=== PATIENT | female | born 1970 | race Caucasian/White ===

== ENCOUNTER 2024-10-16 11:02 | Emergency (ER) | payer BC, SELFPAY ==
[2024-10-16 11:26] VITALS: BP 146/86
[2024-10-16 11:45] VITALS: BP 147/97
[2024-10-16 11:55] VITALS: BMI 22.3
[2024-10-16 11:56] LABS: Hematocrit 37.4 % (37.0-47.0); Hemoglobin 12.5 g/dL (12.0-16.0); Mean Corp Hgb Conc. 33.4 g/dL (33.0-37.0); Mean Corpuscular Volume 91.7 fL (81.0-99.0); Nucleated Red Blood Cells % 0 %; Platelet Count 189 10^3/uL (130-400); Red Cell Dist. Width 13.0 % (11.5-14.5)
--- NOTE | 2024-10-16 11:56 | ED.GENMED ---
History of Present Illness
<Chance Shen, DO - Last Filed: 10/17/24 12:46>
General
Chief Complaint: Dizziness
Source: patient
Exam Limitations: none
Time Seen by Provider: 10/16/24 11:38
Nursing documentation reviewed up to this point in time: agreed with
History of Present Illness
History of Present Illness:
Note:
CHIEF COMPLAINT(S)
Dizziness and unsteady gait
HISTORY OF PRESENT ILLNESS
The patient is a 54-year-old female who presented with episodes of dizziness and feelings of unsteadiness that began last night. She described her legs feeling weak and noted episodes of lightheadedness, which notably occurred while driving her
daughter to [facility]. This sensation persisted throughout her visit, manifesting as feelings of instability, particularly noticeable on [place] platforms of [place] and while walking. The patient likened the experience to having a panic
attack.
Symptom episodes included tingling in her toes and hands, as well as cold and clammy extremities, particularly in the hands. She experienced discomfort while driving, necessitating her daughter to take over driving at one point. Her hands were more
affected by the tingling and cold clamminess than her legs. This morning, while at work, she measured her blood pressure at 150/100 mmHg, which she noted is unusually high for her, given her typically lower baseline and history of bradycardia due to
past marathon running.
PAST MEDICAL AND SURIGICAL HISTORY
Hysterectomy in 2016 due to a fibroid tumor.
SOCIAL HISTORY
The patient reported occasional alcohol consumption, approximately two glasses of beer or wine daily.
PHYSICAL EXAM
General: Alert, no acute distress.
Skin: Warm, dry.
Head: Normocephalic, atraumatic.
Neck: Supple, trachea midline.
Eye, Ears, Nose, Mouth, Throat: Oral mucosa moist.
Cardiovascular: Normal peripheral perfusion, No edema.
Respiratory: Lungs clear, respirations are non-labored.
Gastrointestinal: Abdomen nondistended
Back: Normal range of motion, Normal alignment.
Musculoskeletal: Normal range of motion, normal strength.
Neurological: Alert and oriented to person, place, time, and situation, No focal neurological deficit observed.
Psychiatric: Cooperative, appropriate mood & affect.
PLAN
1. Perform blood tests to evaluate any electrolyte imbalances.
2. Conduct imaging and potentially a computed tomography (CT) scan of the head.
3. Consult with neurology to rule out serious conditions such as multiple sclerosis.
4. Reassess blood pressure management and monitor for severe electrolyte abnormalities.
5. Evaluate electrocardiogram (EKG) for abnormalities in line with symptoms.
DIFFERENTIAL DIAGNOSIS
The Differential Diagnosis includes, in no particular order and is not limited to:
1. Benign paroxysmal positional vertigo
2. Labyrinthitis
3. Vestibular migraine
4. Panic disorder
5. Multiple sclerosis
6. Orthostatic hypotension
7. Transient ischemic attack
8. Hyperventilation syndrome
9. Metabolic imbalances (such as hypoglycemia, electrolyte disturbances)
10. Anxiety disorders
CARE-UPDATE
10/16/24 - 14:42
The patient presents with paresthesias but shows no focal neurological findings on examination. Awaiting further evaluation by neurology. Anticipation is for discharge following neurologys assessment, assuming no acute intervention is required.
Past History
<Chance Shen, DO - Last Filed: 10/17/24 12:46>
Past History
ED Past Medical History: None
Social History
Tobacco: Non-smoker
Personal:
Living: with family
Employment: Employed
Family History
Family History: Other (She had a fall with colon cancer and diabetes, a son with)
Phy Exam
<Chance Shen, DO - Last Filed: 10/17/24 12:46>
Physical Exam
Physical Exam:
.
Course
<Chance Shen, DO - Last Filed: 10/17/24 12:46>
Orders/Labs/Results
Orders:
Orders
10/16/24 11:29
Electrocardiogram (*1) Urgent
Reason for Study: Chest Pain
EKG- Treatment ONCE
10/16/24 11:48
Basic Metabolic Panel Urgent
Complete Blood Count/With Diff Urgent
Lyme Progressive Urgent
Comment: ADD ON
Monotest Urgent
Comment: ADD ON
10/16/24 11:55
CT Head W/o Iv Contrast Urgent
Comment:
Reason For Exam: unsteady gait, paresthesias
10/16/24 11:56
IV Insert/Care/Rem.- Treatment PRN
10/16/24 11:59
NEUROLOGY CONSULT Urgent
Consulting Provider: Warren Bravo
Was physician already notified: Yes
Reason for consult: paresthesias, difficulty walking
10/16/24 13:44
Add On- LAB Urgent
Tests Added?: lyme progressive, monospot
10/16/24 15:18
Thiamine HCl [Vitamin B1] 100 mg PO NOW STA
10/16/24 15:37
AR, IgG Reflex to HEp-2 [S] Routine
Comment: May add to blood in lab
CRP [C-Reactive Protein] Routine
Comment: May add to blood in lab
Erythrocyte Sed Rate Routine
Comment: may add to blood in lab
Ferritin Routine
Folate Routine
Comment: May add to blood in lab
TSH Reflex To Free T4 Routine
Comment: May add to blood in lab
Vitamin B12 Routine
Comment: May add to blood in lab or draw as routine
Abnormal Lab Results
10/16/24 10/16/24
11:48 15:37
WBC 4.4 L 10^3/uL
(4.8-10.8)
RBC 4.08 L 10^6/uL
(4.20-5.40)
Chloride 108 H mmol/L
(98-107)
Vitamin B12 200 L pg/ml
(239-931)
10/16/24 11:48
10/16/24 11:48
Vital Signs
Initial and Last Documented VS:
Initial Vital Signs
Temp Pulse Resp BP Pulse Ox
98.3 F 65 16 146/86 99
10/16/24 11:26 10/16/24 11:26 10/16/24 11:26 10/16/24 11:26 10/16/24 11:26
Last Documented Vital Signs
Temp Pulse Resp BP Pulse Ox
98.3 F 59 14 133/80 99
10/16/24 11:26 10/16/24 16:15 10/16/24 15:00 10/16/24 13:00 10/16/24 11:56
<Rossana Santana DO - Last Filed: 10/16/24 20:37>
Orders/Labs/Results
Orders:
Orders
10/16/24 11:29
Electrocardiogram (*1) Urgent
Reason for Study: Chest Pain
EKG- Treatment ONCE
10/16/24 11:48
Basic Metabolic Panel Urgent
Complete Blood Count/With Diff Urgent
Lyme Progressive Urgent
Comment: ADD ON
Monotest Urgent
Comment: ADD ON
10/16/24 11:55
CT Head W/o Iv Contrast Urgent
Comment:
Reason For Exam: unsteady gait, paresthesias
10/16/24 11:56
IV Insert/Care/Rem.- Treatment PRN
10/16/24 11:59
NEUROLOGY CONSULT Urgent
Consulting Provider: Warren Bravo
Was physician already notified: Yes
Reason for consult: paresthesias, difficulty walking
10/16/24 13:44
Add On- LAB Urgent
Tests Added?: lyme progressive, monospot
10/16/24 15:18
Thiamine HCl [Vitamin B1] 100 mg PO NOW STA
10/16/24 15:37
AR, IgG Reflex to HEp-2 [S] Routine
Comment: May add to blood in lab
CRP [C-Reactive Protein] Routine
Comment: May add to blood in lab
Erythrocyte Sed Rate Routine
Comment: may add to blood in lab
Ferritin Routine
Folate Routine
Comment: May add to blood in lab
TSH Reflex To Free T4 Routine
Comment: May add to blood in lab
Vitamin B12 Routine
Comment: May add to blood in lab or draw as routine
Abnormal Lab Results
10/16/24 10/16/24
11:48 15:37
WBC 4.4 L 10^3/uL
(4.8-10.8)
RBC 4.08 L 10^6/uL
(4.20-5.40)
Chloride 108 H mmol/L
(98-107)
Vitamin B12 200 L pg/ml
(239-931)
10/16/24 11:48
10/16/24 11:48
Vital Signs
Initial and Last Documented VS:
Initial Vital Signs
Temp Pulse Resp BP Pulse Ox
98.3 F 65 16 146/86 99
10/16/24 11:26 10/16/24 11:26 10/16/24 11:26 10/16/24 11:26 10/16/24 11:26
Last Documented Vital Signs
Temp Pulse Resp BP Pulse Ox
98.3 F 59 14 133/80 99
10/16/24 11:26 10/16/24 16:15 10/16/24 15:00 10/16/24 13:00 10/16/24 11:56
<Chance Shen, DO - Last Filed: 10/17/24 12:46>
*Pulse Oximetry
SaO2: 99
Oxygen Mode of Delivery: Room air
<Rossana Santana DO - Last Filed: 10/16/24 20:37>
*Pulse Oximetry
Patient hypoxic: no
*Critical Care Note
Total Time (30-74mins, 75-104mins- exclusive of procedures): Not Applicable
<Rossana Santana DO - Last Filed: 10/16/24 20:37>
Update Note
Update Note:
Attending Signout Note (Rossana Santana DO)
14:30 -assuming care of patient, 54-year-old female without significant past medical history presenting for paresthesias to the arms and legs. Hemodynamically stable in the ER, unremarkable neurologic workup at this time. Pending neurologic
consultation. CT brain negative.
16:00-neurology saw patient, without present concern for significant acute pathology. Recommending outpatient follow-up and outpatient MRI if symptoms continue. Patient provided referral for MRI. Additional laboratory analysis sent, which patient
will follow up on her portal. Return precautions discussed and patient verbalized understanding
ED Attending Note
<Chance Shen, DO - Last Filed: 10/17/24 12:46>
-
Portions of this chart may have been created with voice recognition software.� Occasional wrong word or��sound alike� substitutions may have occurred due to the inherent limitations of voice recognition software.
Discharge Plan
Departure
Patient Disposition: Home (Routine Discharge)
Date of Disposition: 10/16/24
Time of Disposition: 16:11
Patient with high blood pressure during this ER visit?: Yes
Condition: Good
Discharge Problem:
Paresthesia, Dizziness
Instructions: Hand Numbness, Dizziness, BLOOD PRESSURE
Prescriptions:
No Action
cyanocobalamin (vitamin B-12) 2,500 MCG tablet,chewable
2,500 mcg PO DAILY
calcium carbonate-vitamin D3 [Calcium 500 + D] 1 EACH tablet
1 ea PO DAILY
acetaminophen 325 MG tablet
650 mg PO Q4HPRN PRN (Reason: mild pain) 0RF
ferrous sulfate [iron] 325 MG tablet
325 mg PO TID Qty: 90 0RF
Referrals:
Christopher Titus DO [Family Provider, [facility]]
Activity Restrictions/Additional Instructions:
You were seen in the emergency department for paresthesias
You were found to have reassuring vital signs, laboratory analysis, CT imaging of your brain.
Please follow-up closely with your primary care physician and obtain an MRI of your brain and cervical spine if symptoms persist
Return to the emergency department for any worsening of your symptoms, or any development of chest pain, difficulty breathing, abdominal pain with persistent vomiting and inability to tolerate food or liquid by mouth (concern for dehydration),
weakness, headache or confusion, fever greater than 100.4, or any additional symptoms that are concerning to you.
Thank you for choosing [facility].
Interventions
Interventions:
*Risk Screen - Suicide Last Done: 10/16/24 11:26
*General Assessment Last Done: 10/16/24 11:52
*Neglect/Abuse Screening Last Done: 10/16/24 11:26
*ED- Fall Risk Assessment Last Done: 10/16/24 11:52
*Nursing Disposition Last Done: 10/16/24 16:19
ED- Neurological Assessment Last Done: 10/16/24 11:50
ED Swallowing Screen Last Done: 10/16/24 11:50
Discharge Date and Time
Discharge Date/Time: 10/16/24 16:19
Print Language: INDONESIAN
[2024-10-16 12:00] VITALS: BP 133/85
--- NOTE | 2024-10-16 12:00 | CON.NEURO ---
Neuro Assessment/Plan
Assessment
Acute onset bilateral hand sensation change with sense of unsteadiness and sensory changes in bilateral lower extremities associated on 1 occasion with panic and similar to an episode in 2018 at which time the patient was significantly anemic.
Differential diagnosis includes toxic metabolic abnormality
Plan
Check blood work for potential metabolic abnormalities
Check MRI brain with and without contrast if symptoms persist beyond next 24 hours
Consider MRI of cervical spine with and without contrast if symptoms persist beyond the next 24 hours despite absence of hyperreflexia
No clear benefit from rehabilitation evaluations and treatment
Provide thiamine for completeness
Will follow as needed
Consultation
Order
Date of Consultation: 10/16/24
Requesting Provider: Emergency department providers
Reason for Consult: Skin sensation change
Subjective/Objective
Subjective Data
Date of Service: October 16, 2024
Right-Handed
2 days prior to presentation, patient began experiencing multiple symptoms while driving to [facility] from [place]. Specifically the patient began experiencing a sense of numbness in her fingers as well as in the tops of legs associated with
a sense of panic. This sense continued and was later associated with a feeling of unsteadiness. She had experienced a sense of unsteadiness in 2018 at which time she was significantly anemic secondary to a uterine fibroid requiring hysterectomy
and associated significant anemia.
The sense of hand numbness and unsteadiness resolved but returned the following day although less intense lasting for multiple hours before spontaneously resolving. When the patient again experienced that sensation today and also associated with a
feeling of near syncope, while at work, the patient presented to this hospital's emergency department for further evaluation and treatment.
No known modifying factors for symptoms at this time. No obvious recent stressors. The patient continues to have a sense of unsteadiness with standing feeling as if she needs to take her toes into the ground to maintain a sense of steadiness.
Patient has not been dropping objects at this time. No episodes of falling. Symptoms are bilaterally equal.
Objective Data
Vital Signs
Temp Pulse Resp BP Pulse Ox
36.8 C 65 12 147/97 99
10/16/24 11:26 10/16/24 11:45 10/16/24 11:45 10/16/24 11:45 10/16/24 11:56
Lab Results
10/16/24 11:48
Patient Allergies
No Known Allergies Allergy (Verified 10/16/24 11:26)
Review of Systems
-
History Source: Patient and Family
All other systems: Reviewed and negative
EENT: Negative Hearing Loss or Swallowing Difficulty
Respiratory: Negative Trouble Breathing
Cardiac: Negative Chest Pain
Abdomen/GI: Negative Incontinence of Stool
Genitourinary: Negative Incontinence
Musculoskeletal: Negative Back Pain or Neck Pain
Neuro: Negative Dizzy or Headache
Physical Exam
-
General: No Apparent Distress and Appears Stated Age
Eyes: OU Absent Papilledema, Round OU, [place] Conjunctivae and No Ptosis
HEENT: Anicteric and Moist Mucous Membranes
Neck: Full Range of Motion
Respiratory: No Dyspnea
Cardiac: No JVD
GI: Non-distended
Skin: Unremarkable
Extremities: No Clubbing, No Cyanosis and No Edema
Psych: Intact Judgement/Insight
Extended Neurological Exam
Mood & Affect: Mood Unremarkable and Affect Unremarkable
Attention Span & Concentration: Awake, Alert, Interactive and No Difficulty with 2 Step Request
Memory: Unremarkable
Tremor: Hand Tremor Absent and Head Tremor Absent
Speech: Quality Unremarkable and Quantity Unremarkable
Cranial Nerve II: Left Eye: Pupillary Reactivity Unremarkable, Pupillary Size Unremarkable and Visual Marie Intact
Cranial Nerve II: Right Eye: Pupillary Reactivity Unremarkable, Pupillary Size Unremarkable and Visual Marie Intact
Cranial Nerves III, IV, : Extraocular Movement: Extraocular Movement Full in all Directions
Cranial Nerve V: Facial Sensation: Facial Sensation Unremarkable to Cold
Cranial Nerve VII: Facial Symmetry: Normal Facial Symmetry
Cranial Nerve VIII: Hearing: Unremarkable Hearing to Normal Conversational Volume
Cranial Nerves IX, X: Palate Movement: Palate Elevation Symmetric
Cranial Nerve XI: Shoulder Shrug: Unremarkable
Cranial Nerve XII: Tongue Protusion: Midline
Muscle Strength, Overall: Full Throughout
Muscle Bulk & Tone: Bulk Unremarkable and Tone Unremarkable
Pronator Drift: No Drift in Upper Extremities
Deep Tendon Reflexes: Trace Throughout
Cold Sensation: Unremarkable
Vibration Sensation: Unremarkable
Touch Sensation: Unremarkable and Other (Negative reverse Phalen's)
Coordination: [id number] Testing Unremarkable and Crzu-Sope-Lktn movements intact bilaterally
Babinski Sign: Absent Bilaterally
Gait & Station: Up from Seated Without Problem and Romberg Test Negative
Data Reviewed
-
CT Head: Report Reviewed and Image Reviewed
Labs: Ordered and Report Reviewed
Reviewed with: Physician, Patient and Family
Old Records: Summarized
Medications
-
Home Medications
�Medication �Instructions �Recorded
cyanocobalamin (vitamin B-12) 2,500 mcg PO DAILY 02/02/18
2,500 mcg chewable tablet
calcium 500 mg (as 1 ea PO DAILY 02/09/18
carbonate)-vitamin D3 5 mcg (200
unit) tablet (Calcium 500 + D)
acetaminophen 325 mg tablet 650 mg (2 x 325 mg) PO Q4HPRN PRN 05/11/18
mild pain
ferrous sulfate 325 mg (65 mg 325 mg PO TID #90 tabs 05/11/18
iron) tablet (iron)
Past History
Past History
ED Past Medical History: Other (Low B12)
ED Past Surgical History: Gynecological (uterine fibroid 2016)
Social History
Tobacco: Non-smoker
Personal:
Living: with family
Employment: Employed
Family History
Family History: Other (Father colon cancer and son with diabetes)
[2024-10-16 12:11] LABS: Blood Urea Nitrogen 13 mg/dl (7-17); Calcium 9.3 mg/dl (8.4-10.2); Carbon Dioxide 24 mmol/L (22-30); Chloride 108 mmol/L (98-107); Estimated Creatinine Clearance 100 ml/min; Glucose 88 mg/dl (70-99); Sodium 137 mmol/L (135-145); eGFR > 60.00
[2024-10-16 13:00] VITALS: BP 133/80
[2024-10-16] MEDS: VITAMIN B1 100 MG PO (15:39)
[2024-10-16 16:12] LABS: C-Reactive Protein < 5.00 mg/L (0.0-10.00)
[2024-10-16 16:48] LABS: Ferritin 96.6 ng/ml (11.1-264.0)
[2024-10-16 17:19] LABS: Folate 12.2 ng/ml (2.76-20); Vitamin B12 200 pg/ml (239-931)
== END 2024-10-16 16:19 | disposition home or self-care (01) ==
LOC: EMR 11:02
PROVIDERS: Emergency Medicine; CONSULT PHYSICIAN Psychiatry & Neurology Neurology; EMERGENCY PHYSICIAN Student in an Organized Health Care Education/Training Program; FAMILY PHYSICIAN Family Medicine
DX: R20.2 Paresthesia of skin (principal); R42 Dizziness and giddiness; R26.81 Unsteadiness on feet; F41.0 Panic disorder [episodic paroxysmal anxiety]; Z80.0 Family history of malignant neoplasm of digestive organs; Z83.3 Family history of diabetes mellitus
CPT/HCPCS: 99284; 70450; 80048; 82607; 82728; 82746; 84443; 85025; 85652; 86038; 86140; 86308; 86618; 93005

== ENCOUNTER → 2024-11-13 16:00 | Outpatient (REF) | payer BC, SELFPAY | LOC: HWRCS 16:00 | PROVIDERS: ATTENDING PHYSICIAN Family Medicine | DX: R55 Syncope and collapse (principal); R53.83 Other fatigue | CPT/HCPCS: 93306 ==

== ENCOUNTER → 2024-11-15 12:43 | Outpatient (REF) | payer SELFPAY | LOC: HWRAD 12:43 | PROVIDERS: ATTENDING PHYSICIAN Family Medicine | DX: R55 Syncope and collapse (principal); Z82.49 Family history of ischemic heart disease and other diseases of the circulatory system | CPT/HCPCS: 75571 ==

== ENCOUNTER → 2024-12-04 10:25 | Outpatient (REF) | payer BC, SELFPAY | LOC: RCS 10:25 | PROVIDERS: ATTENDING PHYSICIAN Internal Medicine Cardiovascular Disease; FAMILY PHYSICIAN Family Medicine | DX: R03.0 Elevated blood-pressure reading, without diagnosis of hypertension (principal); R06.09 Other forms of dyspnea | CPT/HCPCS: 93017 ==